=== PATIENT | male | born 1960 | race Two or more races ===

== ENCOUNTER 2020-03-03 09:37 | Emergency (ER) | payer OTHER ==
[2020-03-03 09:47] VITALS: BP 169/96; PULSE 83; TEMP 98.6; BMI 31.4
[2020-03-03 10:22] LABS: BASO % 0.2 % (0-2.0); EOS % 1.3 % (0-4.5); HEMATOCRIT 39.9 % (35.4-49); HEMOGLOBIN 12.8 GM/dl (11.7-16.9); LYMPH % 27.6 % (8-40); MCH 27.2 pg (25.7-33.7); MEAN PLT VOLUME 7.2 fl (7.5-11.1); MONO % 10.2 % (3.8-10.2); NEUT % 60.7 % (42.8-82.8); PLATELET COUNT 256 K/MM3 (134-434); RDW 13.6 % (11.9-15.9); WHITE BLOOD COUNT 5.9 K/mm3 (4.0-10.8)
[2020-03-03 10:35] LABS: ALBUMIN 3.5 g/dl (3.4-5.0); BILIRUBIN,TOTAL 0.4 mg/dl (0.2-1); CALCIUM 8.6 mg/dl (8.5-10); CREATININE 0.9 mg/dl (0.55-1.3); POTASSIUM 3.9 mmol/L (3.5-5.1); TOT PROT 8.2 g/dl (6.4-8.2)
== END 2020-03-03 11:30 | disposition left against medical advice (07) ==
LOC: FER 09:37
DX: R22.1 Localized swelling, mass and lump, neck (principal)
CPT/HCPCS: 36415; 70490-TC; 71045-TC-FY; 80053; 84436; 84443; 85025; 99284-25